=== PATIENT | male | born 1960 | race Caucasian/White ===

== ENCOUNTER 2017-11-28 09:51 | Inpatient (IN) | payer SELFPAY ==
[2017-11-28] MEDS ORDERED: LORazepam 1 MG TAB PO ONE ×2 (10:37→19:45)
--- NOTE | 2017-11-28 10:38 | EDPHY ---
H & P Smoking Status: Current every day smoker Time Seen by Provider: 11/28/17 10:13 HPI/ROS: CHIEF COMPLAINT: Anxiety, SI HISTORY OF PRESENT ILLNESS: Patient is a 57-year-old male who presents to the emergency department with anxiety and suicidal ideation. Patient states that his on 09/29/2017. Since that time he went off the deep end. He states he started with binge drinking and taking his pills. He subsequently used methamphetamine and heroin. He had suicidal ideation he thought he wanted to kill himself with overdose. He was admitted to a crisis Care Facility. He states "I talked my way out of there. "He now moved to [place]. He still has suicidal ideation. He thinks he would overdose of cell for connect hose to his car. REVIEW OF SYSTEMS: My complete review of systems is negative except as mentioned in the HPI. ( Mirlande Prieto) Past Medical/Surgical History: Includes depression, anxiety (Mirlande Prieto) Social History: Patient reports having used methamphetamine and heroin previously. Reports drinking alcohol. (Mirlande Prieto) Physical Exam: Vitals noted GENERAL: Mild anxiety, alert. HEENT: Eyes normal to inspection, normal pharynx, no signs of dehydration. NECK: No thyromegaly, no lymphadenopathy, supple. RESPIRATORY: Clear to auscultation bilaterally, no rales, rhonchi or wheezing. CVS: Regular rate and rhythm, no rubs, murmurs, or gallops. ABDOMEN: Soft, nontender, nondistended, no organomegaly. BACK: Normal to inspection, no CVA tenderness. SKIN: Normal color, no rash, warm, dry. No pallor. EXTREMITIES: No pedal edema, no calf tenderness, no Homans sign or cords, no joint swelling. NEURO/PSYCH: Alert and oriented x3, anxious, normal motor sensory exam. No obvious cranial nerve deficit. (Mirlande Prieto) Constitutional: Initial Vital Signs Temperature (C) 36.6 C 11/28/17 09:59 Heart Rate 91 11/28/17 09:59 Respiratory Rate 16 11/28/17 09:59 Blood Pressure 151/89 H 11/28/17 09:59 O2 Sat (%) 96 11/28/17 09:59 O2 Delivery Mode Room Air Allergies/Adverse Reactions: No Known Allergies Allergy (Unverified 11/28/17 09:59) Home Medications: Medication Instructions Recorded NK [No Known Home Meds] 11/28/17 Medical Decision Making ED Course/Re-evaluation: In the emergency department I discussed possible etiologies with the patient. Answered all his questions. I informed the patient I was going to place him on a mental health hold. This form was completed. Psychiatric Services were contacted. Laboratory studies were ordered. Patient was given Ativan 1 mg IV for his anxiety. 10 50: The patient was given Zyprexa. Patient's tox screen was positive for THC. Negative for meth. CBC is normal. Chemistry panel notable for an elevated chloride of 111. Aspirin and Tylenol negative. Alcohol 17. I rechecked the patient on numerous occasions while here. He remained stable throughout his stay. 1500: patient is signed out to Dr. Linares at change of shift. (Mirlande Prieto) 5:30 p.m.-accepted to [address] [place] [address]. EMTALA completed. (Radha Linares) Differential Diagnosis: My differential includes but is not limited to depression, anxiety, suicidal ideation, drug use, alcohol abuse (Mirlande Prieto) - Data Points Laboratory Results: Laboratory Results 11/28/17 10:50 11/28/17 10:50 11/28/17 11/28/17 11/28/17 11:00 10:50 10:50 WBC 7.05 10^3/uL 10^3/uL (3.80-9.50) RBC 5.56 10^6/uL 10^6/uL (4.40-6.38) Hgb 16.7 g/dL g/dL (13.7-17.5) Hct 49.2 % % (40.0-51.0) MCV 88.5 fL fL (81.5-99.8) MCH 30.0 pg pg (27.9-34.1) MCHC 33.9 g/dL g/dL (32.4-36.7) RDW 13.6 % % (11.5-15.2) Plt Count 285 10^3/uL 10^3/uL (150-400) MPV 9.9 fL fL (8.7-11.7) Neut % (Auto) 66.8 % % (39.3-74.2) Lymph % (Auto) 20.0 % % (15.0-45.0) [place] % (Auto) 9.2 % % (4.5-13.0) Eos % (Auto) 2.7 % % (0.6-7.6) Baso % (Auto) 0.7 % % (0.3-1.7) Nucleat RBC Rel Count 0.0 % % (0.0-0.2) Absolute Neuts (auto) 4.71 10^3/uL 10^3/uL (1.70-6.50) Absolute Lymphs (auto) 1.41 10^3/uL 10^3/uL (1.00-3.00) Absolute Monos (auto) 0.65 10^3/uL 10^3/uL (0.30-0.80) Absolute Eos (auto) 0.19 10^3/uL 10^3/uL (0.03-0.40) Absolute Basos (auto) 0.05 10^3/uL 10^3/uL (0.02-0.10) Absolute Nucleated RBC 0.00 10^3/uL 10^3/uL (0-0.01) Immature Gran % 0.6 % % (0.0-1.1) Immature Gran # 0.04 10^3/uL 10^3/uL (0.00-0.10) Sodium 144 mEq/L mEq/L (135-145) Potassium 4.3 mEq/L mEq/L (3.5-5.2) Chloride 111 mEq/L H mEq/L (97-110) Carbon Dioxide 17 mEq/l L mEq/l (22-31) Anion Gap 16 mEq/L mEq/L (8-16) BUN 16 mg/dL mg/dL (7-23) Creatinine 0.9 mg/dL mg/dL (0.7-1.3) Estimated GFR > 60 Glucose 91 mg/dL mg/dL (70-100) Calcium 9.0 mg/dL mg/dL (8.5-10.4) Salicylates < 1.0 mg/dL L mg/dL (2.0-20.0) Urine Opiates Screen NEGATIVE (NEGATIVE) Acetaminophen < 10 mcg/mL L mcg/mL (10-30) Urine Barbiturates NEGATIVE (NEGATIVE) Ur Phencyclidine Scrn NEGATIVE (NEGATIVE) Ur Amphetamine Screen NEGATIVE (NEGATIVE) U Benzodiazepines Scrn NEGATIVE (NEGATIVE) Urine Cocaine Screen NEGATIVE (NEGATIVE) U Marijuana (THC) Screen NON-NEGATIVE H (NEGATIVE) Ethyl Alcohol 17 mg/dL H mg/dL (0-10) Medications Given: Discontinued Medications Lorazepam (Ativan) 1 mg PO EDNOW ONE Stop: 11/28/17 10:38 Last Admin: 11/28/17 10:59 Dose: Not Given Olanzapine (Zyprexa Zydis) 5 mg PO EDNOW ONE Stop: 11/28/17 10:54 Last Admin: 11/28/17 10:57 Dose: 5 mg Departure - Departure Clinical Impression: Suicidal ideation Condition: Good Referrals: NONE *PRIMARY CARE P,. [Primary Care Provider] - As per Instructions
[2017-11-28] MEDS ORDERED: OLANZapine DISINTEGR 5 MG TAB PO ONE (10:53)
[2017-11-28 11:00] LABS: PLATELET COUNT 285 10^3/uL (150-400)
[2017-11-28] MEDS ORDERED: chlordiazePOXIDE 25 MG CAP PO PRN (22:38)
[2017-11-28] MEDS ORDERED: IBUPROFEN 200 MG TAB PO PRN (22:38)
[2017-11-28] MEDS ORDERED: PROMETHAZINE HCL 25 MG TAB PO PRN (22:38)
[2017-11-28] MEDS ORDERED: PROMETHAZINE HCL 25 MG SUPPR PR PRN (22:38)
[2017-11-28] MEDS ORDERED: MAGNESIUM HYDROXIDE 30 ML UDCUP PO PRN (22:38)
[2017-11-28] MEDS ORDERED: THIAMINE HCL 100 MG TAB PO ONE (22:38)
[2017-11-28] MEDS ORDERED: MAG HYDROX/AL HYDROX/SIMETH 30 ML UDCUP PO PRN (22:38)
[2017-11-29] MEDS: THIAMINE HCL 100 MG TAB PO SCH (08:20)
[2017-11-29] MEDS: FOLIC ACID 1 MG TAB PO SCH (08:20)
[2017-11-29] MEDS: MULTIVITAMINS 1 EACH TAB PO SCH (08:20)
[2017-11-29] MEDS: LORazepam 1 MG TAB PO PRN ×2 (11:00→21:37)
[2017-11-29] MEDS ORDERED: GABAPENTIN 300 MG CAP PO ONE (11:08)
[2017-11-29] MEDS: NICOTINE POLACRILEX 2 MG GUM B PRN (11:46)
[2017-11-29] MEDS: NICOTINE 21 MG/24 HR PATCH TD SCH (11:47)
--- NOTE | 2017-11-29 13:01 | BAPA ---
[f rep st] ADMISSION PSYCHIATRIC ASSESSMENT Corrected report DATE OF SERVICE: 11/29/2017 CHIEF COMPLAINT: "I feel out of control. I'm really afraid I'm going to hurt myself." HISTORY OF PRESENT ILLNESS: Patient is a 57-year-old male with longstanding substance dependence and possible depression. He states that he was clean from drugs for 1-2 years prior to the of his in September of 2017. He reports that she had been suffering from progressive cirrhosis related to hepatitis C and that she had been getting sicker when he noticed that she had a mental status change and took her to the hospital. There, they noticed that she had a very high ammonia level and admitted her to the ICU, where she was diagnosed with terminal cirrhosis and referred to hospice. Patient states that he stayed with her for several days in hospice until she on September 29. The patient states at that time, he "just totally lost it." He took the money that he had and went to a known drug house in [place], where he lived, and began using heroin. The patient states that he has a history of heroin use in the past, but had not used for at least 5 years. He had then taken methadone and admittedly abused that for a number of years until about 1-2 years ago, when he stopped that completely. In the last 2 years, he states he has used marijuana and alcohol, though had abstained from methamphetamine and heroin which were his intravenous drugs of choice. After his , he states he went on a garner of using her leftover oxycodone and Xanax, and then also heroin, cocaine and methamphetamine. He felt out of control, and he states that he was using much higher quantities of heroin than he normally would with some intention to . He states that his was "my soulmate" and that "I told her if she was going to , then I would too." Eventually, he contacted his daughter who lives in [place], and she [place]. He did this, and once he arrived, he was feeling intensely anxious and increasingly suicidal. He voiced this to his daughter, and she encouraged him to come to the emergency department, which he did of his own volition. In the emergency department, he continued to described intense daily anxiety with anxiety attacks , feeling "revved up all the time," insomnia, persistent crying, prominent feelings of grief and sadness and thoughts of suicide. He states to me today that he wants help with his anxiety and wants to get clean again and wants to "learn how to deal with this crap." PAST PSYCHIATRIC HISTORY: Significant for 7 previous substance abuse rehab treatments, though no previous psychiatric inpatient treatment. He was given Wellbutrin for depression at one point, which he states was very effective, but caused him to have "prostate problems." He has not taken other psychotropic medicines besides those that he has borrowed from others, primarily benzodiazepines. 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 Patient denies previous suicide attempts except for the parasuicidal behavior related to his recent substance use. ALLERGIES: No known medical allergies. CURRENT MEDICATIONS: None. PAST MEDICAL HISTORY: Noncontributory, possibly some might mild hypertension. SOCIAL HISTORY: Patient was born to a 14-year-old mother and then adopted into a Scientologist family. He states he had 4 siblings in the family, and that his father was "the perfect Scientologist." He states that his father was very strict and that his mother was verbally abusive, telling him "you're worthless and stupid. " Patient states that he was a good student, but that he quit trying and "I like to excel at things, so I became the best of the worst." He states he got into frequent trouble and began using drugs and alcohol around the age of 10, and ended up selling drugs most of his life. He states he was in long-term 3 different times for selling drugs and got out the last time in 2011. He reports meeting his (he states they never actually got , but they considered themselves to be ) in 2010 and that they always had a very good relationship. He states that his also liked to use intravenous methamphetamine and heroin, but that they did not consider it a problem for most of their relationship as they could control their intake. 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 He has lived between [place], [place], [place], [place], and [place], [place]. He was most recently living in [place], [place] , before returning to [place] to visit his daughter. He states that he has lost all of his possessions numerous times, and currently, has only what fits inside his Honda. He has no identifiable source of income or any funds at this time. SUBSTANCE ABUSE HISTORY: Alcohol: Patient has used alcohol up to a daily basis in the past. He was recently injecting a mixture of vodka and oxycodone and then drinking some, as well. He denies any history of major alcohol withdrawal seizures or DTs. Methamphetamine: Patient states that he has used methamphetamines in the last 5 years, mostly intravenously. His last use was about 2 weeks ago. Marijuana: Patient states he has used marijuana since the age of 10 on a varying basis, but up to daily. His last use was within the last week. Opiates: Patient states that he has used and abused oxycodone, methadone and heroin over the last 5 years. This includes intravenous use. Cocaine: Patient states that he rarely uses cocaine, but did use some in the last 2 weeks. FAMILY HISTORY: Relatively unknown. Patient states his mother from cervical cancer at a young age. ADMISSION LABORATORY: CBC is normal. Serum chemistries are normal. Urine drug screen is positive for marijuana. Alcohol on admission was 0.017. MENTAL STATUS EXAMINATION: Reveals a somewhat disheveled, though healthy- appearing male. He is very pleasant, interactive and talkative. He does not demonstrate any pressure of speech. His affect is rather dysphoric, tearful at times when discussing the of his , stable and appropriate. His mood is described as "messed up." Thought process is linear and goal- directed. His thought content reveals no evidence of psychosis. He is alert and oriented to person, place, time, and situation, and his sensorium is clear. His attention and concentration are good with no evidence of delirium. His intellect appears to be at least average as evidenced by mostly his fund of knowledge and vocabulary and his reports of academic achievements despite his overall poor academic outcomes. He continues to endorse thoughts of , dying and suicide, though states he is safe on the unit. His insight and judgment appear to be good. IMPRESSION: Depressive disorder, not otherwise specified. Possible substance- induced mood disorder versus protracted grief versus adjustment disorder. Methamphetamine use disorder, severe. Cannabis use disorder, severe. Alcohol use disorder, mild to moderate. Recent of spouse. Unemployment, lack of financial resources, lack of natural supports, homelessness. The patient is a pleasant, 57-year-old male, who presents at this time with some intense feelings of depression and anxiety related in large part to the recent of his spouse. This triggered a relapse of multiple drugs and alcohol, and he states he feels out of control and is afraid that if he is not in the hospital, he will again attempt to harm himself. PLAN: 1. [facility] hold. 2. We will work with the patient in establishing possible pharmacologic intervention to help with his various issues. We will focus first on his anxiety, as he states that the only thing that has seemed to help him in recent years are benzodiazepines. While I will provide in the short term, only some p.r.n. Ativan, we will also start him on gabapentin which he states has been helpful to him in the past. We will begin this at 300 mg t.i.d. The risks, benefits and alternatives of this are discussed, and he agrees to proceed. 3. We will monitor initially on a CIWA protocol, but once we institute the treatment with the Ativan and Neurontin , we will likely discontinue this. He is currently showing no evidence of major alcohol withdrawal. 4. We will engage in individual, group, and milieu psychotherapy. He says he is very willing to talk and is engaging and wants to process things, which I am sure will be very helpful to him. 5. We will work with the patient to establish a discharge plan in the community and [place] Medicaid in order to facilitate this. Estimated length of stay is 3-5 days. /[id number]/MODL Jorge dictator, 12/02/17, jack OLSON
--- NOTE | 2017-11-29 13:16 | GCON ---
[f rep st] CONSULTATION DATE OF CONSULTATION: 11/29/2017 The patient is a pleasant 57-year-old gentleman with a history of polysubstance abuse, who presents w ith suicidality last evening. It sounds like his of long standing in September. He has been bingeing on alcohol, using heroin and meth since then. It sounds like this behavior has bee n part of his life for a number of years. He has been on and off drugs. He expresses concern that he may have hepatitis C because he shared needles with his daughter who has hepatitis C. He also indicates dyspnea on exertion with breathlessness. He denies lower extremity edema or orthopnea. Does not have a known cardiac history although he was told on the basis of an EK G that he has had a prior heart attack. He denies recent chest pain, diaphoresis, exertional arm benny n, jaw pain, chest pain. No fever, chills, cough, sputum, nausea, vomiting, diarrhea. REVIEW OF SYSTEMS: Complete 10-point review of systems conducted and negative except as noted in the HPI. PAST MEDICAL HISTORY: 1. Possible hepatitis C. 2. Likely emphysema or COPD. 3. Polysubstance abuse including heroin and meth and alcohol. ALLERGIES: No known drug allergies. HOME MEDICATIONS: None. SOCIAL HISTORY: He is a lifelong smoker. He has used heroin and meth, cocaine, smoked many drugs, m any, many as he says. FAMILY HISTORY: Parents . Daughter has hep C. PHYSICAL EXAMINATION: VITAL SIGNS: Temp 36.3 blood pressure 128/64, pulse 90, breathing 16 times a minute, 95% on room air. GENERAL: No acute distress. HEENT: Sclerae anicteric. Oropharynx clear. Mucous membranes moist. NECK: Supple without lymphadenopathy or JVD. LUNGS: Show prolonged expi ratory phase without wheeze. HEART: S1, S2. ABDOMEN: Soft, nontender, nondistended. LOWER EXTREM ITIES: Without edema. Calves nontender. SKIN: Without rash. LABORATORY DATA: CBC is normal. Sodium 144, potassium 4.3, chloride 111, bicarb 17, BUN 16, creatin ine 0.9. Tox screen is negative for marijuana. Alcohol level is 17. Otherwise unremarkable. I have discussed the case with psychiatry MD. ASSESSMENT/PLAN: A 57-year-old gentleman here with suicidality. 1. Suicidality management per Psych. 2. Suspected chronic obstructive pulmonary disease. The patient has prolonged expiratory phase and longstanding smoking history. I have taken the liberty of starting him on Combivent which I have dis charged him with. It is a well-tolerated medicine that does not require followup. 3. Question coronary artery disease. The patient does not have active cardiac symptoms and he is ho spitalized for an urgent psychiatric issue. Would recommend outpatient followup. 4. Question hepatitis C. Again the patient is not jaundiced and has never been, it would be reasona ble for him to be tested in the outpatient setting. 5. Polysubstance abuse. He is showing no signs of withdrawal toxidrome at this point in time. Woul d follow. DISPOSITION: Inpatient psych. Thanks for this consultation. Hospital Medicine will not follow. Pl ease call with questions. /[id number]/MODL
[2017-11-29] MEDS: GABAPENTIN 300 MG CAP PO SCH ×2 (15:40→21:30)
[2017-11-29] MEDS: IPRATROPIUM/ALBUTEROL 4GM MDI IH SCH ×4 (15:41→21:30)
[2017-11-30] MEDS: IPRATROPIUM/ALBUTEROL 4GM MDI IH SCH ×5 (06:09→20:44)
[2017-11-30] MEDS: LORazepam 1 MG TAB PO PRN ×2 (08:05→20:43)
[2017-11-30] MEDS: GABAPENTIN 300 MG CAP PO SCH ×3 (08:05→20:44)
[2017-11-30] MEDS: NICOTINE 21 MG/24 HR PATCH TD SCH (08:05)
[2017-11-30] MEDS: MULTIVITAMINS 1 EACH TAB PO SCH (08:06)
[2017-11-30] MEDS: FOLIC ACID 1 MG TAB PO SCH (08:06)
[2017-11-30] MEDS: THIAMINE HCL 100 MG TAB PO SCH (08:06)
--- NOTE | 2017-11-30 14:37 | SOAPPROG ---
SOAP Progress Note Assessment/Plan: Assessment: 57 yo man with h/o polysubstance dependence and likely substance induced anxiety and mood related disorders. His in September and he has been living with his daughter in [place]. He has been using meth and heroin in addition to binge drinking alcohol. He took OD of meds prior to admission. Plan: 11/30/17 14:33 1. D/C CIWA, patient has been scoring < 2, and denies any current sxs of withdrawal toxicity. 2. Patient is currently prescribed Ativan PRN and Gabapentin to help with anxiety. 3. Patient is calm and appropriate. He denies any SI/HI. Subjective: Met with patient, reviewed chart and d/w staff. Patient presents calm, cooperative, pleasant, talkative. He slept 7.5 hrs last night and is eating appropriately. He attended art therapy this AM and says "it's fun to create something." He says "I really enjoyed painting in school." Patient had cheerful , bright affect and engaged appropriately with peers and said he "enjoyed" interacting with people in group. He denies any SI/HI. Objective: Vital Signs Temp Pulse Resp BP Pulse Ox 36.5 C 106 H 12 145/79 H 94 11/30/17 10:27 11/30/17 10:27 11/30/17 10:27 11/30/17 10:27 11/30/17 10:27 MSE: Affect: Euthymic Mood: "OK" TP: Linear, goal-directed TC:Denies any SI/ HI, no AH/VH Insight/Judgment: Poor - Time Spent With Patient Time Spent With Patient: 20" - Pending Discharge Pending Discharge Within 24 Hours: No Pending Discharge Within 48 Hours: No ICD10 Worksheet Patient Problems: Problems Problem Status Onset Suicidal ideation Acute
[2017-12-01] MEDS: IPRATROPIUM/ALBUTEROL 4GM MDI IH SCH ×4 (05:30→21:03)
[2017-12-01] MEDS: LORazepam 1 MG TAB PO PRN ×2 (05:33→15:14)
[2017-12-01] MEDS: GABAPENTIN 300 MG CAP PO SCH ×3 (08:49→21:03)
[2017-12-01] MEDS: FOLIC ACID 1 MG TAB PO SCH (08:49)
[2017-12-01] MEDS: MULTIVITAMINS 1 EACH TAB PO SCH (08:49)
[2017-12-01] MEDS: THIAMINE HCL 100 MG TAB PO SCH (08:49)
[2017-12-01] MEDS: NICOTINE 21 MG/24 HR PATCH TD SCH (08:50)
--- NOTE | 2017-12-01 13:18 | SOAPPROG ---
SOAP Progress Note Assessment/Plan: Assessment: 57 yo man with h/o polysubstance dependence and likely substance induced anxiety and mood related disorders. His in September and he has been living with his daughter in [place]. He has been using meth and heroin in addition to binge drinking alcohol. He took OD of meds prior to admission. Plan: 11/30/17 14:33 1. D/C CIWA, patient has been scoring < 2, and denies any current sxs of withdrawal toxicity. 2. Patient is currently prescribed Ativan PRN and Gabapentin to help with anxiety. 3. Patient is calm and appropriate. He denies any SI/HI. 12/01/17 13:14 1. Change to voluntary status, patient denies any SI, not feeling depressed anymore 2. Patient denies any sxs of withdrawal 3. Patient taking Ativan and Gabapentin for anxiety Subjective: :Met with patient, reviewed chart and d/w staff. Patient says, "I can be a pain in the ass" sometimes. He says he often has difficult time getting along with other people. He says that art and music are distractions for him which he enjoys. "I like to play around with art." He has gotten alot of positive feedback from peers about his artistic abilities. He says this makes him feel "good." He denies any current SI/HI, says he no longer has thoughts, plan or intent to hurt himself or anyone else. He wants to go back to daughter's house, but admits he smokes THC, drinks alcohol and uses meth when he is around her and the rest of his extended family who all have addiction problems. Objective: Vital Signs Temp Pulse Resp BP Pulse Ox 36.6 C 88 16 134/69 H 96 12/01/17 06:35 12/01/17 06:35 12/01/17 06:35 12/01/17 06:35 12/01/17 06:35 MSE: Affect: Euthymic Mood: "OK" TP: Linear TC: Denies any SI/HI Insight/ Judgment: Poor a/e/b willingness to use drugs at his daughter's house - Time Spent With Patient Time Spent With Patient: 20" - Pending Discharge Pending Discharge Within 24 Hours: No Pending Discharge Within 48 Hours: No ICD10 Worksheet Patient Problems: Problems Problem Status Onset Suicidal ideation Acute
[2017-12-02] MEDS ORDERED: LORazepam 1 MG TAB PO SCH
[2017-12-02] MEDS ORDERED: GABAPENTIN 300 MG CAP PO SCH
[2017-12-02] MEDS: IPRATROPIUM/ALBUTEROL 4GM MDI IH SCH ×4 (06:34→20:42)
[2017-12-02] MEDS: LORazepam 1 MG TAB PO PRN ×3 (06:54→20:42)
[2017-12-02] MEDS: FOLIC ACID 1 MG TAB PO SCH (08:03)
[2017-12-02] MEDS: MULTIVITAMINS 1 EACH TAB PO SCH (08:03)
[2017-12-02] MEDS: GABAPENTIN 300 MG CAP PO SCH ×3 (08:03→20:42)
[2017-12-02] MEDS: NICOTINE 21 MG/24 HR PATCH TD SCH (09:22)
[2017-12-02] MEDS: NICOTINE POLACRILEX 2 MG GUM B PRN (09:23)
--- NOTE | 2017-12-02 16:29 | SOAPPROG ---
SOAP Progress Note Assessment/Plan: Assessment: Plan: 12/02/17 16:29 Mood: Much improved. Dysphoria likely secondary to anxiety and psychosocial stressors. Anxiety: Much improved on gabapentin. CCM. Subjective: Pt seen, discussed with staff. Repots feeling "a lot better." Mood has improved and he is forward thinking and hopeful. Ambivalent about substance use , though states he is "really glad I got all that crap cleaned out of my brain. " Sleeping and eating well. Anxiety is "way better." Objective: Vital Signs Temp Pulse Resp BP Pulse Ox 36.3 C 82 20 111/73 94 12/02/17 06:00 12/02/17 06:00 12/02/17 06:00 12/02/17 06:00 12/02/17 06:00 MSE: Calm, coop. Affect is euthymic, stable, approp. Mood is "good." TP linear. TC reveals no psychosis. - Time Spent With Patient Time Spent With Patient: 25" ICD10 Worksheet Patient Problems: Problems Problem Status Onset Suicidal ideation Acute
[2017-12-03] MEDS ORDERED: GABAPENTIN 300 MG CAP PO SCH
[2017-12-03] MEDS: IPRATROPIUM/ALBUTEROL 4GM MDI IH SCH (06:00)
[2017-12-03 06:17] VITALS: BP 112/60; PULSE 88; RESP 16; TEMP 97.5; O2SAT 95
[2017-12-03] MEDS: FOLIC ACID 1 MG TAB PO SCH (07:22)
[2017-12-03] MEDS: LORazepam 1 MG TAB PO PRN (07:22)
[2017-12-03] MEDS: NICOTINE 21 MG/24 HR PATCH TD SCH (07:22)
[2017-12-03] MEDS: GABAPENTIN 300 MG CAP PO SCH (07:22)
[2017-12-03] MEDS: MULTIVITAMINS 1 EACH TAB PO SCH (07:22)
--- NOTE | 2017-12-03 19:39 | BDS ---
[f rep st] BEHAVIORAL HEALTH DISCHARGE SUMMARY REASON FOR ADMISSION: Patient is a 57-year-old male with a history of anxiety, possible mo od problems and substance dependence. He presented to the Emergency Department of his own [facility] admission because of suicidal ideation. He had recently just moved to [place] from [place] an d was living with his daughter. He states that he had relapsed on drugs and alcohol in September afte r the of his . He states that he is still having considerable grief and that he felt out o f control of his substance use. He was having pressing suicidal ideations and came to the hospital f or help. A full description of the events preceding admission can be found in his admission history dated 11/29/2017. ADMITTING DIAGNOSES: Depressive disorder, not otherwise specified. Possible substance induced mood disorder versus protracted grief versus adjustment disorder. Methamphetamine use disorder, severe. Cannabis use disorder, severe. Alcohol use disorder, mild to moderate. Recent of spouse, unem ployment, lack of financial resources and lack of natural supports. Homelessness. ADMITTING PHYSICAL EXAMINATION: Performed by Dr. Jose Gomez reveals no acute physical findings. ADMISSION LABORATORY: CBC is normal. Serum chemistries show chloride slightly up at 111, carbon valentina xide down at 17. Otherwise, normal. Urine drug screen is positive for marijuana. Alcohol was 17. HOSPITAL COURSE: Patient was admitted to the [facility] inpatient unit on an M1 hold. He was pleasant and cooperative and quite talkative. He processed with me for approximately an hour on the first day of admission in regard to the of his and his relapse on substances. He seemed to have good insight into his pattern of substance use and stated that he wanted to try to bec ome clean and sober. He was able to problem solve some of his psychosocial stresses such as homeless ness, unemployment and lack of funds. I discussed with him the potential use of psychotropic medicat ions. He was not in favor of starting an antidepressant. He stated he wanted to try something to he lp with his anxiety instead. We started gabapentin 300 mg t.i.d. with some lorazepam as well. He to lerated this well. He stated that he felt "calmer than I have in my life." Patient's hospitalization was uncomplicated. He continued the gabapentin and lorazepam without incid ent and participated actively in all therapeutic activities. His suicidal ideation resolved. He was forward thinking and hopeful. As he was preparing for discharge, he did mention some ambivalence ab out his ongoing sobriety, stating that he figured he would probably use heroin again, though he state d that he had no intention to try to harm or kill himself. CONDITION AT DISCHARGE: Stable. His affect was euthymic, stable and appropriate. He had no evidenc e of any withdrawal and was denying suicidal ideation. DISCHARGE DIAGNOSES: Adjustment disorder with mixed anxiety and depression. Anxiety disorder, unspe cified. Amphetamine use disorder, moderate. Cannabis use disorder, moderate. Opiate use disorder, severe. Alcohol use disorder moderate. Homelessness, financial problems, unemployment, recent of spouse. DISCHARGE MEDICATIONS: Neurontin 300 mg t.i.d. Lorazepam 1 mg q.4 hours, as needed. The patient is given for 14 tablets of lorazepam with no refill and 90 tablets of Neurontin also with no refill. DISPOSITION: Patient left the hospital via bus to get his car at the [facility]. LEGAL COURSE: Patient was converted to a voluntary status at the expiration of his M1 hold. LABORATORY: There were no labs or studies pending at the time of discharge. CONDITION: Patient's attitude at the time of discharge was upbeat and positive. ADVANCE DIRECTIVES: Documented in the chart. He was a full code throughout his admission. FOLLOWUP: With [facility] as scheduled by primary care sales representative. The patient had applied for Medicaid and was waiting to hear about that. He was given complete instr uctions and followup appointments at the time of discharge. /[id number]/MODL
== END 2017-12-03 11:15 | disposition home or self-care (01) | DRG 882 ==
LOC: BBEH 18:45
PROVIDERS: ADMIT Psychiatry & Neurology Psychiatry; ATTEND Psychiatry & Neurology Psychiatry
DX: F43.23 Adjustment disorder with mixed anxiety and depressed mood (principal); F41.9 Anxiety disorder, unspecified; F12.920 Cannabis use, unspecified with intoxication, uncomplicated; F10.920 Alcohol use, unspecified with intoxication, uncomplicated; F11.10 Opioid abuse, uncomplicated; F15.10 Other stimulant abuse, uncomplicated; Z59.0 Homelessness; F17.210 Nicotine dependence, cigarettes, uncomplicated; J44.9 Chronic obstructive pulmonary disease, unspecified
CPT/HCPCS: 80305; G0480

== ENCOUNTER 2017-12-13 10:24 | Emergency (ER) | payer MEDICAID ==
[2017-12-13 10:30] VITALS: TEMP 97.3
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
[2017-12-13] MEDS ORDERED: METOCLOPRAMIDE 10 MG/2 ML VIAL IVP ONE (11:21)
[2017-12-13] MEDS ORDERED: DEXAMETHASONE 10 MG/ML VIAL IVP ONE (11:21)
[2017-12-13] MEDS ORDERED: KETOROLAC 30 MG/1 ML SDV IVP ONE (11:21)
[2017-12-13] MEDS ORDERED: NS 1,000 ML IV ONE (11:21)
[2017-12-13 11:45] VITALS: RESP 16; O2SAT 95
[2017-12-13 13:04] VITALS: BP 101/59; PULSE 83
== END 2017-12-13 13:02 | disposition home or self-care (01) ==
DX: G44.52 New daily persistent headache (NDPH) (principal); J32.9 Chronic sinusitis, unspecified; F17.200 Nicotine dependence, unspecified, uncomplicated; E86.9 Volume depletion, unspecified
CPT/HCPCS: 96374; J1100; J1200; J1885; J2765